=== PATIENT | male | born 1985 | race Caucasian/White ===

== ENCOUNTER 2022-06-10 16:11 | Observation (INO) ==
[2022-06-10 16:55] LABS: Basophils % 0.2 % (0.0-0.8); Eosinophils % 0.1 % (0.00-10.9); Hemoglobin 16.8 GM/DL (14.0-18.0); Immature Granulocytes % 0.6 %; Immature Granulocytes Absolute 0.09 #; Lymphocytes # 2.7 10*3/uL (1.4-4.0); Lymphocytes % 17.5 % (21.2-54.2); Mean Corpuscular HGB Conc 34.3 GM/DL (32-36); Mean Corpuscular Volume 82.2 FL (87-102); Mean Platelet Volume 11.5 FL (9.6-12.0); Monocytes # 1.6 10*3/uL (0.11-0.8); Monocytes % 10.7 % (1.7-12.7); Neutrophils % 70.9 % (38.7-73.9); Platelet Count 190 T/CUMM (130-400); Red Blood Count 5.96 MC/CUMM (3.8-5.5); Red Cell Distribution Width 12.9 % (9.3-17.3); White Blood Count 15.2 T/CUMM (4-12)
[2022-06-10 17:03] LABS: PT Patient Result 11.2 SECS (10.1-12.1); Partial Thromboplastin Time 29.5 SECS (23.7-32.9)
[2022-06-10] MEDS ORDERED: MORPHINE 2 MG/1 ML SYRINGE IV STA (17:34)
[2022-06-10] MEDS ORDERED: MORPHINE 2 MG/1 ML SYRINGE ONE (17:35)
[2022-06-10] MEDS ORDERED: BUPIVACAINE MPF 0.25% 10 ML VIAL ONE (17:47)
[2022-06-10] MEDS ORDERED: TISSUE ADHESIVE 1 EACH APPLICATOR TOP ONE (17:47)
[2022-06-10] MEDS ORDERED: LIDOCAINE 2%/EPI 20 ML VIAL ONE (17:47)
[2022-06-10] MEDS ORDERED: fentaNYL 100 MCG/2 ML VIAL ONE (17:50)
[2022-06-10] MEDS ORDERED: ONDANSETRON 4 MG/2 ML VIAL ONE (17:50)
[2022-06-10] MEDS ORDERED: MIDAZOLAM 2 MG/2 ML VIAL ONE (17:50)
[2022-06-10] MEDS ORDERED: SEVOFLURANE 1 UNIT/15 MINUTE INH ONE (17:50)
[2022-06-10] MEDS ORDERED: LIDOCAINE 2% 5 ML VIAL ONE (17:50)
[2022-06-10] MEDS ORDERED: ROCURONIUM 50 MG/5 ML VIAL IV ONE (17:50)
[2022-06-10] MEDS ORDERED: propofoL 200 MG/20 ML VIAL IV ONE (17:50)
[2022-06-10] MEDS ORDERED: KETOROLAC 30 MG/1 ML VIAL ONE (17:50)
[2022-06-10] MEDS: LACTATED RINGERS 1,000 ML IV SCH ×3 (17:57→23:01)
[2022-06-10] MEDS ORDERED: LACTATED RINGERS 1,000 ML IV ONE (18:20)
[2022-06-10 18:27] LABS: Bilirubin,Total 1.5 MG/DL (0.20-1.00); Calcium 9.1 MG/DL (8.5-10.1); Osmolality,Calculated 272.1 MOS/KG (273-304); Potassium 3.8 MMOL/L (3.5-5.1); Total Protein 7.9 G/DL (6.4-8.2)
[2022-06-10] MEDS ORDERED: NEOSTIGMINE 10 MG/10 ML VIAL ONE (18:30)
[2022-06-10] MEDS ORDERED: GLYCOPYRROLATE 0.4 MG/2 ML VIAL ONE (18:30)
[2022-06-10] MEDS ORDERED: MORPHINE 2 MG/1 ML SYRINGE IV PRN (18:47)
[2022-06-10] MEDS ORDERED: ACETAMINOPHEN 325 MG TABLET PO PRN (18:47)
[2022-06-10] MEDS ORDERED: ONDANSETRON 4 MG/2 ML VIAL IV PRN (18:47)
[2022-06-10] MEDS: PIPERACILLIN/TAZOBACTAM 3,375 MG in SODIUM CHLORIDE 0.9% 100 ML IV SCH (23:00)
[2022-06-11 05:01] LABS: Basophils % 0.1 % (0.0-0.8); Hematocrit 46.6 VOL% (42.0-52.0); Hemoglobin 15.5 GM/DL (14.0-18.0); Immature Granulocytes % 0.7 %; Lymphocytes # 1.8 10*3/uL (1.4-4.0); Lymphocytes % 11.7 % (21.2-54.2); Mean Corpuscular HGB Conc 33.3 GM/DL (32-36); Mean Corpuscular Volume 85.7 FL (87-102); Mean Platelet Volume 11.9 FL (9.6-12.0); Monocytes # 1.5 10*3/uL (0.11-0.8); Monocytes % 10.1 % (1.7-12.7); Neutrophils % 77.4 % (38.7-73.9); Platelet Count 154 T/CUMM (130-400); Red Blood Count 5.44 MC/CUMM (3.8-5.5); Red Cell Distribution Width 13.2 % (9.3-17.3); White Blood Count 15.1 T/CUMM (4-12)
[2022-06-11 05:22] LABS: Calcium 8.9 MG/DL (8.5-10.1); Potassium 3.8 MMOL/L (3.5-5.1)
[2022-06-11] MEDS: PIPERACILLIN/TAZOBACTAM 3,375 MG in SODIUM CHLORIDE 0.9% 100 ML IV SCH ×3 (05:44→21:17)
[2022-06-11] MEDS: PANTOPRAZOLE 40 MG TABLET PO SCH (08:04)
[2022-06-11 14:32] LABS: Glucose,Urine (UA) >=1000 mg/dL (Negative); Ketones,Urine 80 mg/dL (Negative); Protein,Urine Negative (Negative); Urine Appearance Clear (Clear); Urine Color Yellow (Yellow); Urine Specific Gravity <= 1.005 (1.001-1.035); Urine pH 5.5 (4.5-8.0)
[2022-06-11 14:33] LABS: Bilirubin,Urine Negative (Negative); Blood, Urine Trace mg/dL (Negative); Nitrite,Urine Negative (Negative); Urine Urobilinogen 0.2 eU/dL (<2.0)
[2022-06-11 14:36] LABS: Mucus,Urine Occasional /LPF (Occasional); RBC,Urine <1 /HPF (0-4)
[2022-06-12] MEDS: PIPERACILLIN/TAZOBACTAM 3,375 MG in SODIUM CHLORIDE 0.9% 100 ML IV SCH (04:35)
[2022-06-12 06:50] LABS: Basophils % 0.3 % (0.0-0.8); Eosinophils # 0.1 10*3/uL (0.0-0.87); Hematocrit 44.8 VOL% (42.0-52.0); Hemoglobin 14.7 GM/DL (14.0-18.0); Immature Granulocytes % 0.8 %; Immature Granulocytes Absolute 0.08 #; Lymphocytes % 19.8 % (21.2-54.2); Mean Corpuscular HGB Conc 32.8 GM/DL (32-36); Mean Corpuscular Volume 85.5 FL (87-102); Mean Platelet Volume 11.8 FL (9.6-12.0); Monocytes # 1.3 10*3/uL (0.11-0.8); Monocytes % 12.8 % (1.7-12.7); Neutrophils % 65.3 % (38.7-73.9); Platelet Count 145 T/CUMM (130-400); Red Blood Count 5.24 MC/CUMM (3.8-5.5); Red Cell Distribution Width 13.2 % (9.3-17.3)
[2022-06-12 07:12] LABS: Calcium 9.1 MG/DL (8.5-10.1)
[2022-06-12] MEDS: PANTOPRAZOLE 40 MG TABLET PO SCH (08:36)
[2022-06-12] MEDS: LACTATED RINGERS 1,000 ML IV SCH ×2 (08:38)
[2022-06-12] MEDS ORDERED: TAMSULOSIN 0.4 MG CAPSULE PO SCH (09:00)
[2022-06-12 12:04] VITALS: BP 142/86
== END 2022-06-12 16:00 | disposition home or self-care (01) ==
LOC: N.ED 16:11 → N.EDINP 16:11 → N.3E 19:01
PROVIDERS: ADMIT Surgery; ATTEND Surgery

== ENCOUNTER 2022-06-25 10:05 | Inpatient (IN) ==
[2022-06-25] MEDS ORDERED: SODIUM CHLORIDE 0.9% 1,000 ML IV STA (11:40)
[2022-06-25 12:04] LABS: Basophils # 0.1 10*3/uL (0.0-0.2); Basophils % 0.4 % (0.0-0.8); Eosinophils # 0.2 10*3/uL (0.0-0.87); Eosinophils % 1.3 % (0.00-10.9); Hematocrit 45.2 VOL% (42.0-52.0); Immature Granulocytes % 1.3 %; Immature Granulocytes Absolute 0.19 #; Lymphocytes # 2.3 10*3/uL (1.4-4.0); Lymphocytes % 15.4 % (21.2-54.2); Mean Corpuscular HGB Conc 33.2 GM/DL (32-36); Mean Corpuscular Volume 82.6 FL (87-102); Mean Platelet Volume 11.3 FL (9.6-12.0); Monocytes # 1.8 10*3/uL (0.11-0.8); Monocytes % 12.6 % (1.7-12.7); Platelet Count 317 T/CUMM (130-400); Red Blood Count 5.47 MC/CUMM (3.8-5.5); Red Cell Distribution Width 12.6 % (9.3-17.3); White Blood Count 14.7 T/CUMM (4-12)
[2022-06-25 12:27] LABS: Albumin 3.4 G/DL (3.4-5.0); Bilirubin,Total 0.8 MG/DL (0.20-1.00); Calcium 9.5 MG/DL (8.5-10.1); Osmolality,Calculated 273.1 MOS/KG (273-304); Potassium 3.7 MMOL/L (3.5-5.1); Total Protein 8.5 G/DL (6.4-8.2)
[2022-06-25] MEDS ORDERED: PIPERACILLIN/TAZOBACTAM 3,375 MG in SODIUM CHLORIDE 0.9% 100 ML IV STA (12:30)
[2022-06-25 12:36] LABS: Bilirubin,Urine Negative (Negative); Blood, Urine Negative (Negative); Glucose,Urine (UA) >=500 mg/dL (Negative); Ketones,Urine 20 mg/dL (Negative); Mucus,Urine Occasional /LPF (Occasional); Nitrite,Urine Negative (Negative); Protein,Urine Negative (Negative); RBC,Urine 1 /HPF (0-4); Urine Appearance CLEAR (Clear); Urine Color Yellow (Yellow); Urine Specific Gravity 1.036 (1.001-1.035); Urine Urobilinogen < 2.0 eU/dL (<2.0)
[2022-06-25] MEDS: LACTATED RINGERS 1,000 ML IV SCH ×2 (12:54→20:55)
[2022-06-25] MEDS: ONDANSETRON 4 MG/2 ML VIAL IV PRN ×3 (13:05→23:35)
[2022-06-25] MEDS: HYDROmorphone 1 MG/1 ML SYRINGE IV PRN ×3 (13:07→21:02)
[2022-06-25] MEDS: PIPERACILLIN/TAZOBACTAM 3,375 MG in SODIUM CHLORIDE 0.9% 100 ML IV SCH (20:55)
[2022-06-26] MEDS: PIPERACILLIN/TAZOBACTAM 3,375 MG in SODIUM CHLORIDE 0.9% 100 ML IV SCH ×3 (05:00→20:33)
[2022-06-26] MEDS: HYDROmorphone 1 MG/1 ML SYRINGE IV PRN ×2 (05:23→10:16)
[2022-06-26] MEDS: ONDANSETRON 4 MG/2 ML VIAL IV PRN (05:26)
[2022-06-26] MEDS: LACTATED RINGERS 1,000 ML IV SCH ×3 (06:06→22:50)
[2022-06-26 06:20] LABS: Basophils # 0.1 10*3/uL (0.0-0.2); Basophils % 0.4 % (0.0-0.8); Calcium 8.6 MG/DL (8.5-10.1); Eosinophils # 0.2 10*3/uL (0.0-0.87); Eosinophils % 1.5 % (0.00-10.9); Hematocrit 39.6 VOL% (42.0-52.0); Immature Granulocytes Absolute 0.14 #; Lymphocytes # 2.5 10*3/uL (1.4-4.0); Lymphocytes % 17.3 % (21.2-54.2); Mean Corpuscular HGB Conc 32.8 GM/DL (32-36); Mean Corpuscular Volume 82.5 FL (87-102); Mean Platelet Volume 11.8 FL (9.6-12.0); Monocytes # 2.2 10*3/uL (0.11-0.8); Monocytes % 15.7 % (1.7-12.7); Neutrophils % 64.1 % (38.7-73.9); Osmolality,Calculated 275.8 MOS/KG (273-304); Platelet Count 276 T/CUMM (130-400); Potassium 3.8 MMOL/L (3.5-5.1); Red Cell Distribution Width 12.6 % (9.3-17.3); White Blood Count 14.2 T/CUMM (4-12)
[2022-06-26 07:35] LABS: Eosinophils 1 % (0-10); Hypochromia Slight; Lymphocytes 19 % (20-55); Microcytosis Slight; Total Cells Counted 100
[2022-06-26 07:36] LABS: Platelet Estimate Normal
[2022-06-26] MEDS: ENOXAPARIN 40 MG/0.4 ML SYRINGE SUBCUT SCH (10:09)
[2022-06-26] MEDS: PANTOPRAZOLE 40 MG VIAL IV SCH (10:10)
[2022-06-26] MEDS ORDERED: DEXTROSE 10% 250 ML BAG IV PRN (11:30)
[2022-06-26] MEDS ORDERED: GLUCAGON 1 MG VIAL IM PRN (11:30)
[2022-06-26] MEDS: ACETAMINOPHEN 325 MG TABLET PO PRN (16:35)
[2022-06-27] MEDS: HYDROmorphone 1 MG/1 ML SYRINGE IV PRN ×4 (00:25→21:40)
[2022-06-27] MEDS: ONDANSETRON 4 MG/2 ML VIAL IV PRN ×3 (00:30→21:39)
[2022-06-27] MEDS: PIPERACILLIN/TAZOBACTAM 3,375 MG in SODIUM CHLORIDE 0.9% 100 ML IV SCH ×3 (05:45→21:35)
[2022-06-27] MEDS: LACTATED RINGERS 1,000 ML IV SCH ×3 (06:05→21:35)
[2022-06-27] MEDS: PANTOPRAZOLE 40 MG VIAL IV SCH (08:30)
[2022-06-27] MEDS: ENOXAPARIN 40 MG/0.4 ML SYRINGE SUBCUT SCH (08:30)
[2022-06-27] MEDS: ACETAMINOPHEN 325 MG TABLET PO PRN (16:07)
[2022-06-28] MEDS: ACETAMINOPHEN 325 MG TABLET PO PRN (01:31)
[2022-06-28] MEDS: HYDROmorphone 1 MG/1 ML SYRINGE IV PRN ×2 (02:20→13:56)
[2022-06-28 05:16] LABS: Basophils % 0.4 % (0.0-0.8); Eosinophils # 0.3 10*3/uL (0.0-0.87); Eosinophils % 2.4 % (0.00-10.9); Hemoglobin 12.8 GM/DL (14.0-18.0); Immature Granulocytes % 1.2 %; Immature Granulocytes Absolute 0.13 #; Lymphocytes # 1.9 10*3/uL (1.4-4.0); Lymphocytes % 16.7 % (21.2-54.2); Mean Corpuscular HGB Conc 32.8 GM/DL (32-36); Mean Corpuscular Volume 83.3 FL (87-102); Mean Platelet Volume 11.4 FL (9.6-12.0); Monocytes # 1.4 10*3/uL (0.11-0.8); Monocytes % 12.9 % (1.7-12.7); Neutrophils % 66.4 % (38.7-73.9); Platelet Count 280 T/CUMM (130-400); Red Blood Count 4.68 MC/CUMM (3.8-5.5); Red Cell Distribution Width 12.5 % (9.3-17.3); White Blood Count 11.1 T/CUMM (4-12)
[2022-06-28] MEDS: PIPERACILLIN/TAZOBACTAM 3,375 MG in SODIUM CHLORIDE 0.9% 100 ML IV SCH (05:43)
[2022-06-28] MEDS: LACTATED RINGERS 1,000 ML IV SCH ×2 (05:43→15:06)
[2022-06-28] MEDS ORDERED: ERTAPENEM 1,000 MG in SODIUM CHLORIDE 0.9% 100 ML IV SCH (09:30)
[2022-06-28] MEDS: PANTOPRAZOLE 40 MG VIAL IV SCH (09:56)
[2022-06-28] MEDS: ENOXAPARIN 40 MG/0.4 ML SYRINGE SUBCUT SCH (09:56)
[2022-06-28 11:16] VITALS: BP 129/83
[2022-06-28] MEDS: ONDANSETRON 4 MG/2 ML VIAL IV PRN (13:56)
== END 2022-06-28 15:44 | disposition home health service (06) | DRG 862 ==
LOC: N.ED 10:05 → N.EDINP 12:32 → N.3E 17:02
PROVIDERS: ADMIT Surgery; ATTEND Surgery